=== PATIENT | female | born 1985 | race African-American/Black ===

== ENCOUNTER 2016-08-27 16:20 | Emergency (ER) | payer OTHER ==
[2016-08-27] MEDS ORDERED: KETOROLAC 30 MG/ML VIAL ONE (20:26)
[2016-08-27] MEDS ORDERED: DIPHENHYDRAMINE 50 MG/ML VIAL ONE (20:26)
[2016-08-27] MEDS ORDERED: SODIUM CHLORIDE 0.9% 1,000 ML ONE (20:26)
[2016-08-27] MEDS ORDERED: METOCLOPRAMIDE 10 MG/2 ML VIAL ONE (20:26)
[2016-08-27] MEDS ORDERED: ONDANSETRON 4 MG VIAL ONE (20:26)
== END 2016-08-27 21:21 | disposition home or self-care (01) ==
LOC: ER 16:20
DX: G43.109 Migraine with aura, not intractable, without status migrainosus (principal)
CPT/HCPCS: 96361; 96374; 96375; 99283; J1885; J2405